=== PATIENT | female | born 1940 | race African-American/Black ===

== ENCOUNTER 2018-09-05 16:40 | Emergency (ER) | payer SELFPAY ==
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
[2018-09-05] MEDS ORDERED: NA CHLORIDE 0.9% 250 ML ONE (18:02)
[2018-09-05] MEDS ORDERED: KETOROLAC 30 MG/ML INJ ONE (18:02)
[2018-09-05 18:40] LABS: Absolute Lymphocytes (CBC) 1.8 K/uL (0.7-4.9); Basophils % 0.3 % (0-1.3); Hematocrit 33.6 % (36.0-45.0); Lymphocytes % 30.7 % (15.3-44.8); MPV 9.5 fL (7.6-11.3); RBC Red Blood Cell Count 4.39 M/uL (3.86-4.86)
[2018-09-05 18:56] LABS: ALT/SGPT 35 U/L (12-78); AST/SGOT 26 U/L (15-37); Albumin 3.3 g/dL (3.4-5.0); Alkaline Phosphatase 171 U/L (45-117); BUN Blood Urea Nitrogen 17 mg/dL (7-18); Bicarbonate 29 mmol/L (21-32); Bilirubin Direct 0.2 mg/dL (0-0.2); Bilirubin Total 0.5 mg/dL (0.2-1.0); Lipase 161 U/L (73-393); Potassium 4.2 mmol/L (3.5-5.1); Protein, Total 7.3 g/dL (6.4-8.2); Sodium Level 138 mmol/L (136-145)
[2018-09-05 18:58] LABS: Glucose Level 466 mg/dL (74-106)
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
[2018-09-05] MEDS ORDERED: INSULIN -REGULAR HUMAN 50 UNIT/0.5 ML ML ONE (19:32)
[2018-09-05] MEDS ORDERED: CEFTRIAXONE/SWI 1gm 1 GM/10 ML SYR ONE (19:34)
[2018-09-05 19:49] LABS: Troponin (Emerg Dept Use Only) < 0.02 ng/mL (0.0-0.045)
[2018-09-05 20:18] LABS: Urine Blood TRACE (NEG); Urine Glucose 2+ (NEG); Urine Protein 1+ (NEG); Urine Specific Gravity 1.015 (1.005-1.030)
--- NOTE | 2018-09-06 21:14 | EKG ---
Test Date: 2018-09-05 Test Time: 19:49:44 Chair Caner: MEASUREMENT RESULTS: Intervals: Rate: 51 TN: 164 QRSD: 84 QT: 414 QTc: 381 Wake: P: 42 TN: 164 QRS: -34 T: -31 INTERPRETIVE STATEMENTS: Sinus bradycardia Left axis deviation Moderate voltage criteria for LVH, may be normal variant Nonspecific ST and T wave abnormality Abnormal ECG No previous ECG available for comparison Electronically Signed On 09-06-18 21:13:35 CDT by Jake Enciso
== END 2018-09-05 20:49 | disposition home or self-care (01) ==
LOC: ER 16:40
DX: S16.1XXA Strain of muscle, fascia and tendon at neck level, initial encounter (principal); V49.9XXA Car occupant (driver) (passenger) injured in unspecified traffic accident, initial encounter; I10 Essential (primary) hypertension; E11.9 Type 2 diabetes mellitus without complications
CPT/HCPCS: 36415; 70450; 71250; 72125; 80048; 80076; 81003; 82962; 83690; 84484; 85025; 87077; 87086; 87088; 87186; 93005; 96372; 96374; 96375; 99284; J0696